=== PATIENT | female | born 1990 | race African-American/Black ===

== ENCOUNTER 2018-04-08 18:25 | Emergency (ER) | payer BC, SELFPAY ==
[2018-04-08] MEDS ORDERED: ONDANSETRON 4 MG/2 ML VIAL ONE (19:47)
[2018-04-08] MEDS ORDERED: NA CHLORIDE 0.9% 1,000 ML ONE (19:47)
[2018-04-08 20:14] LABS: Absolute Monocytes 0.7 K/uL (0.1-1.3); Absolute Neutrophil 8.9 K/uL (1.8-8.0); Basophils % 0.4 % (0-1.3); Eosinophils % 0.4 % (0-4.4); Hematocrit 42.6 % (36.0-45.0); Lymphocytes % 9.7 % (15.3-44.8); MCH 24.2 pg (27.0-35.0); MCV 77.8 fL (80-100); MPV 10.3 fL (7.6-11.3); Monocytes % 6.5 % (3.3-12.3); RBC Red Blood Cell Count 5.47 M/uL (3.86-4.86)
[2018-04-08 20:29] LABS: Albumin 4.2 g/dL (3.2-5.5); Bilirubin Direct 0.2 mg/dL (0-0.2); Bilirubin Total 0.9 mg/dL (0.3-1.2); Protein, Total 8.5 g/dL (6.0-8.3)
[2018-04-08 20:30] LABS: Potassium 4.1 mEq/L (3.6-5.0)
[2018-04-08 20:32] LABS: Urine Bacteria <20 /HPF (<20); Urine Culture Reflex Order NOT NEEDED; Urine RBC <5 /HPF (NONE SEEN)
[2018-04-08 21:02] LABS: Urine Blood TRACE (NEG); Urine Glucose NEGATIVE (NEG); Urine Protein TRACE (NEG)
--- NOTE | 2018-04-08 21:03 | RAD REPORT ---
EXAM DESCRIPTION: US - Abdomen Exam Limited - 04/08/2018 7:51 pm CLINICAL HISTORY: Abdominal pain. COMPARISON: None. FINDINGS: The gallbladder wall is not thickened. A gallstone is not seen. The biliary tree is normal caliber. IMPRESSION: Unremarkable gallbladder ultrasound.
--- NOTE | 2018-04-08 21:54 | ER ---
Nurse's Notes [facility] Name: Riri Olivarez Age: 27 yrs Sex: Female : 1990 Arrival Date: 04/08/2018 Time: 18:30 Bed 20 Private MD: Carlos Carlson Diagnosis: Vomiting;Unspecified abdominal pain Presentation: 04/08 18:48 Presenting complaint: Patient states: vomiting, abdominal cramps, feels hot, t max 100. Transition of care: patient was not received from another setting of care. Onset of symptoms was April 08, 2018 at 08:00. Risk Assessment: Do you want to hurt yourself or someone else? Patient reports no desire to harm self or others. Initial Sepsis Screen: Does the patient meet any 2 criteria? No. Patient's initial sepsis screen is negative. Does the patient have a suspected source of infection? No. Patient's initial sepsis screen is negative. Care prior to arrival: None. 18:48 Method Of Arrival: Ambulatory 18:48 Acuity: GAYLE 3 Triage Assessment: 18:49 General: Appears in no apparent distress. uncomfortable, Behavior is calm, cooperative. Pain: Complains of pain in abdomen Pain currently is 6 out of 10 on a pain scale. GI: Reports cramping, nausea, vomiting. ECHOCARDIOGRAPHER: 18:49 [facility] 04/08/2018 Historical: - Allergies: 18:49 No Known Allergies; - Home Meds: 18:49 None [Active]; - PMHx: 18:49 None; ch - PSHx: 18:49 None; - Immunization history:: Adult Immunizations up to date. - Social history:: Smoking status: Patient/guardian denies using tobacco, Patient uses alcohol, occasionally. - Ebola Screening: : Patient negative for fever greater than or equal to 101.5 degrees Fahrenheit, and additional compatible Ebola Virus Disease symptoms Patient denies exposure to infectious person Patient denies travel to an Ebola-affected area in the 21 days before illness onset No symptoms or risks identified at this time. Screenin:00 Abuse screen: Denies threats or abuse. Denies injuries from another. Nutritional bp screening: No deficits noted. Tuberculosis screening: No symptoms or risk factors identified. Fall Risk None identified. Assessment: 19:14 General: Appears in no apparent distress. uncomfortable, Behavior is calm, cooperative, bp appropriate for age. Pain: Complains of pain in abdomen. Neuro: Level of Consciousness is awake, alert, obeys commands, Oriented to person, place, time, situation. Cardiovascular: Capillary refill < 3 seconds. Respiratory: Airway is patent. GI: Abdomen is flat. : No signs and/or symptoms were reported regarding the genitourinary system. EENT: No signs and/or symptoms were reported regarding the EENT system. Derm: Skin is intact. Musculoskeletal: No signs and/or symptoms reported regarding the musculoskeletal system. 21:00 Reassessment: PO CHALLENGE SUCCESSFUL, PROVIDER NOTIFIED. bp Vital Signs: 18:58 BP 113 / 88; Pulse 124; Resp 22; Temp 100.4; Pulse Ox 97% on R/A; Weight 72.57 kg; ch Height 5 ft. 2 in. (157.48 cm); Pain 6/10; 20:32 BP 108 / 81; Pulse 102; Resp 16; Pulse Ox 100% on R/A; rv 21:00 BP 117 / 84; Pulse 94; Resp 16; Pulse Ox 100% ; bp 18:58 Body Mass Index 29.26 (72.57 kg, 157.48 cm) ED Course: 18:30 Patient arrived in ED. sb2 18:31 Carlos Carlson MD is Private Physician. sb2 18:48 Triage completed. ch 18:49 Arm band placed on left wrist. Patient placed in an exam room, on a stretcher. 18:58 [facility] 18:58 Osei Sherwood MD is Attending Physician. [facility] 19:00 Patient has correct armband on for positive identification. Placed in gown. Bed in low bp position. Call light in reach. Side rails up X2. Adult w/ patient. 19:02 Virgil Lamas, ADALBERTO is Primary Nurse. bp 19:51 US Abdomen Limited In Process Unspecified. EDMS 19:52 Ultrasound completed. Patient tolerated well. Notified ECHO VASCULAR TECH/PA . cy 20:10 Inserted saline lock: 20 gauge in right antecubital area, using aseptic technique. bp 22:10 No provider procedures requiring assistance completed. IV discontinued, intact, rv bleeding controlled, No redness/swelling at site. Pressure dressing applied. Administered Medications: 20:00 Drug: NS 0.9% 1000 ml Route: IV; Rate: 125 ml/hr; Site: right antecubital; bp 20:31 Follow up: Response: No adverse reaction rv 22:10 Follow up: IV Status: Completed infusion rv 20:00 Drug: Zofran 4 mg Route: IVP; Site: right antecubital; bp 20:31 Follow up: Response: No adverse reaction; Nausea is decreased rv Outcome: 21:54 Discharge ordered by MD. cunningham 22:11 Discharged to home ambulatory. rv 22:11 Condition: improved 22:11 Discharge instructions given to patient, Instructed on discharge instructions. 22:11 Patient left the ED. rv Signatures: Dispatcher [employer] EDAmanda Naqvi, ADALBERTO RN Ben Sanchez PA PA jmm Peltier, Brian, RN RN Jenaro Pride Sheri sb2 Hans Jackman RN RN rv Corrections: (The following items were deleted from the chart) 19:01 18:48 Acuity: GAYLE 4 ch
--- NOTE | 2018-04-08 21:54 | EDPHYS ---
Physician Documentation [facility] Name: Riri Olivarez Age: 27 yrs Sex: Female : 1990 Arrival Date: 04/08/2018 Time: 18:30 Bed 20 Private MD: Carlos Carlson ED Physician Osei Sherwood HPI: 04/08 19:25 This 27 yrs old Black Female presents to ER via Ambulatory with complaints of Fever, jmm Vomiting. 19:25 The patient presents to the emergency department with nausea, vomiting, abdominal pain. jmm Onset: The symptoms/episode began/occurred gradually, today. Associated signs and symptoms: Pertinent positives: fever. patient states she developed vomiting, fever, and epigastric pain earlier today. denies diarrhea. child has had diarrhea for the past 3 days. Patient states she has abdominal pain when vomiting. . BRICKMASON: 18:49 LMP 04/08/2018 ch Historical: - Allergies: 18:49 No Known Allergies; ch - Home Meds: 18:49 None [Active]; ch - PMHx: 18:49 None; ch - PSHx: 18:49 None; ch - Immunization history:: Adult Immunizations up to date. - Social history:: Smoking status: Patient/guardian denies using tobacco, Patient uses alcohol, occasionally. - Ebola Screening: : Patient negative for fever greater than or equal to 101.5 degrees Fahrenheit, and additional compatible Ebola Virus Disease symptoms Patient denies exposure to infectious person Patient denies travel to an Ebola-affected area in the 21 days before illness onset No symptoms or risks identified at this time. ROS: 19:25 Cardiovascular: Negative for chest pain, palpitations, and edema, Respiratory: Negative jmm for shortness of breath, cough, wheezing, and pleuritic chest pain. 19:25 Skin: Negative for injury, rash, and discoloration, Neuro: Negative for headache, weakness, numbness, tingling, and seizure. 19:25 Constitutional: Positive for fever. 19:25 Abdomen/GI: Positive for abdominal pain, nausea and vomiting, Negative for diarrhea. 19:25 All other systems are negative. Exam: 19:25 Constitutional: This is a well developed, well nourished patient who is awake, alert, jmm and in no acute distress. Head/Face: atraumatic. 19:25 Cardiovascular: Rate: tachycardic, Rhythm: regular. 19:25 Respiratory: the patient does not display signs of respiratory distress, Respirations: normal, Breath sounds: are clear throughout. 19:25 Abdomen/GI: Inspection: abdomen appears normal, Bowel sounds: normal, Palpation: soft, mild abdominal tenderness, in the epigastric area. 19:25 Back: CVA tenderness, is absent. 19:25 Skin: Appearance: Color: normal in color. 19:25 Neuro: Orientation: is normal, Mentation: is normal, Memory: is normal. 19:25 Psych: Behavior/mood is pleasant, cooperative. Vital Signs: 18:58 BP 113 / 88; Pulse 124; Resp 22; Temp 100.4; Pulse Ox 97% on R/A; Weight 72.57 kg; ch Height 5 ft. 2 in. (157.48 cm); Pain 6/10; 20:32 BP 108 / 81; Pulse 102; Resp 16; Pulse Ox 100% on R/A; rv 21:00 BP 117 / 84; Pulse 94; Resp 16; Pulse Ox 100% ; bp 18:58 Body Mass Index 29.26 (72.57 kg, 157.48 cm) ch MDM: 19:25 Differential diagnosis: Nonspecific abd pain, gastritis, cholecystitis. Data reviewed: [facility] vital signs, nurses notes, lab test result(s), radiologic studies, ultrasound. ED course: Imaging studies review no acute findings. patient states feeling much better after administration of iv fluids and antiemetics. no abdominal pain on repeat examination. No RLQ pain appreciated, I do not currently suspect appendicitis. . 19:28 Patient medically screened. [facility] 04/08 19:33 Order name: Amylase, Serum; Complete Time: 20:39 [facility] 04/08 19:33 Order name: Basic Metabolic Panel; Complete Time: 20:39 [facility] 04/08 19:33 Order name: CBC with Diff; Complete Time: 20:39 [facility] 04/08 19:33 Order name: Creatinine for Radiology; Complete Time: 20:39 [facility] 04/08 19:33 Order name: Hepatic Function; Complete Time: 20:39 [facility] 04/08 19:33 Order name: Lipase; Complete Time: 20:39 [facility] 04/08 19:33 Order name: Urine Microscopic Only; Complete Time: 20:39 [facility] 04/08 19:33 Order name: IV Saline Lock; Complete Time: 21: [facility] 04/08 19:33 Order name: Labs collected and sent; Complete Time: 21: [facility] 04/08 19:33 Order name: US Abdomen Limited; Complete Time: 21: [facility] 04/08 20:37 Order name: Urine Dipstick--Ancillary (enter results); Complete Time: 21: ar 04/08 20:37 Order name: Urine --Ancillary (enter results); Complete Time: 21: ar 04/08 19:33 Order name: Urine Dipstick-Ancillary (obtain specimen); Complete Time: 21:22 [facility] Administered Medications: 20:00 Drug: NS 0.9% 1000 ml Route: IV; Rate: 125 ml/hr; Site: right antecubital; bp 20:31 Follow up: Response: No adverse reaction rv 22:10 Follow up: IV Status: Completed infusion rv 20:00 Drug: Zofran 4 mg Route: IVP; Site: right antecubital; bp 20:31 Follow up: Response: No adverse reaction; Nausea is decreased rv Disposition: 04/08/18 21:54 Discharged to Home. Impression: Vomiting, Unspecified abdominal pain. - Condition is Stable. - Discharge Instructions: Abdominal Pain, Adult, Nausea and Vomiting. - Prescriptions for Zofran 4 mg Oral Tablet - take 1 tablet by ORAL route every 12 hours As needed; 20 tablet. - Medication Reconciliation Form, Thank You Letter, Antibiotic Education, Prescription Opioid Use form. - Follow up: Private Physician; When: Tomorrow; Reason: Recheck today's complaints. - Notes: Please follow up with your primary care provider in 1 to 2 days for reevaluation. Please return to the ED if you develop worsening abdominal pain, vomiting, or any other concerning symptoms. Addendum: 04/16/2018 11:55 Co-signature as Attending Physician, Osei Sherwood MD. g s Signatures: Dispatcher [employer] EDMS Amanda Russell, Ben Gupta RN, ch, PA PA Osei Larson MD MD gs Peltier, Brian, RN RN Hans Cornejo RN RN rv Corrections: (The following items were deleted from the chart) 04/08 22:11 21:54 04/08/2018 21:54 Discharged to Home. Impression: Vomiting; Unspecified abdominal rv pain. Condition is Stable. Forms are Medication Reconciliation Form, Thank You Letter, Antibiotic Education, Prescription Opioid Use. Follow up: Private Physician; When: Tomorrow; Reason: Recheck today's complaints. octavio
== END 2018-04-08 22:11 | disposition home or self-care (01) ==
LOC: ER 18:25
DX: R10.9 Unspecified abdominal pain (principal)
CPT/HCPCS: 36415; 76705; 80048; 80076; 81003; 81015; 81025; 82150; 83690; 85025; 96361; 96374; 99283; J2405; J7030

== ENCOUNTER 2018-09-13 16:42 | Emergency (ER) | payer SELFPAY ==
--- NOTE | 2018-09-13 17:10 | EDPHYS ---
Physician Documentation [facility] Name: Riri Olivarez Age: 27 yrs Sex: Female : 1990 Arrival Date: 09/13/2018 Time: 16:46 Bed 12 Private MD: Carlos Carlson ED Physician Chai Eaton HPI: 09/13 17:11 This 27 yrs old Black Female presents to ER via Ambulatory with complaints of Rash. snw 17:11 The patient's rash thought to be caused by hand, foot, and mouth. The rash is located snw on the hand, foot, and mouth. The rash can be described as macular/vesicular. Onset: The symptoms/episode began/occurred gradually, 1 week(s) ago, and became persistent. 17:13 Associated signs and symptoms: Pertinent positives: mild joint pain last week, daughter snw dx with hand, foot, and mouth last week. Treatment given at home: motrin. The patient has not experienced similar symptoms in the past, but family has similar symptoms, daughter. The patient has not recently seen a physician. Historical: - Allergies: 16:49 No Known Allergies; sv - PSHx: 16:49 None; sv - Immunization history:: Flu vaccine is not up to date. - Social history:: Smoking status: Patient/guardian denies using tobacco. - Ebola Screening: : No symptoms or risks identified at this time. ROS: 17:11 Constitutional: Negative for fever, chills, and weight loss, Eyes: Negative for injury, snw pain, redness, and discharge, ENT: Negative for injury, pain, and discharge, Neck: Negative for injury, pain, and swelling, Cardiovascular: Negative for chest pain, palpitations, and edema, Respiratory: Negative for shortness of breath, cough, wheezing, and pleuritic chest pain, Abdomen/GI: Negative for abdominal pain, nausea, vomiting, diarrhea, and constipation, Back: Negative for injury and pain, : Negative for injury, bleeding, discharge, and swelling, MS/Extremity: Negative for injury and deformity, Neuro: Negative for headache, weakness, numbness, tingling, and seizure, Psych: Negative for depression, anxiety, suicide ideation, homicidal ideation, and hallucinations. 17:11 Skin: Positive for rash. Exam: 17:10 Constitutional: This is a well developed, well nourished patient who is awake, alert, snw and in no acute distress. Head/Face: Normocephalic, atraumatic. Eyes: Pupils equal round and reactive to light, extra-ocular motions intact. Lids and lashes normal. Conjunctiva and sclera are non-icteric and not injected. Cornea within normal limits. Periorbital areas with no swelling, redness, or edema. ENT: Nares patent. No nasal discharge, no septal abnormalities noted. Tympanic membranes are normal and external auditory canals are clear. Oropharynx with no redness, swelling, or masses, exudates, or evidence of obstruction, uvula midline. Mucous membranes moist. Neck: Trachea midline, no thyromegaly or masses palpated, and no cervical lymphadenopathy. Supple, full range of motion without nuchal rigidity, or vertebral point tenderness. No Meningismus. Chest/axilla: Normal chest wall appearance and motion. Nontender with no deformity. No lesions are appreciated. Cardiovascular: Regular rate and rhythm with a normal S1 and S2. No gallops, murmurs, or rubs. Normal PMI, no JVD. No pulse deficits. Respiratory: Lungs have equal breath sounds bilaterally, clear to auscultation and percussion. No rales, rhonchi or wheezes noted. No increased work of breathing, no retractions or nasal flaring. Abdomen/GI: Soft, non-tender, with normal bowel sounds. No distension or tympany. No guarding or rebound. No evidence of tenderness throughout. Back: No spinal tenderness. No costovertebral tenderness. Full range of motion. MS/ Extremity: Pulses equal, no cyanosis. Neurovascular intact. Full, normal range of motion. Neuro: Awake and alert, GCS 15, oriented to person, place, time, and situation. Cranial nerves II-XII grossly intact. Motor strength 5/5 in all extremities. Sensory grossly intact. Cerebellar exam normal. Normal gait. Psych: Awake, alert, with orientation to person, place and time. Behavior, mood, and affect are within normal limits. 17:10 Skin: Appearance: normal except for affected area, hand, foot, and mouth. Vital Signs: 16:49 BP 127 / 96; Pulse 81; Resp 16; Temp 97; Pulse Ox 100% ; Weight 77.11 kg; Height 5 ft. sv 2 in. (157.48 cm); Pain 0/10; 16:49 Body Mass Index 31.09 (77.11 kg, 157.48 cm) MDM: 17:02 Patient medically screened. snw 17:11 Data reviewed: vital signs, nurses notes. Data interpreted: Pulse oximetry: on room air snw is 100 %. Interpretation: normal. Counseling: I had a detailed discussion with the patient and/or guardian regarding: the historical points, exam findings, and any diagnostic results supporting the discharge/admit diagnosis, the presence of at least one elevated blood pressure reading (>120/80) during this emergency department visit, the need for outpatient follow up, to return to the emergency department if symptoms worsen or persist or if there are any questions or concerns that arise at home. Special discussion: Based on the history and exam findings, there is no indication for further emergent testing or inpatient evaluation. I discussed with the patient/guardian the need to see the primary care provider for further evaluation of the symptoms. Administered Medications: No medications were administered Disposition: 09/14 07:07 Co-signature as Attending Physician, Chai Eaton MD I agree with the assessment and barbie plan of care. Disposition: 09/13/18 17:09 Discharged to Home. Impression: Viral infection, unspecified. - Condition is Stable. - Discharge Instructions: Hand, Foot, and Mouth Disease, Pediatric, Viral Respiratory Infection, Rehydration, Adult. - Work release form, Medication Reconciliation Form, Thank You Letter, Antibiotic Education, Prescription Opioid Use form. - Follow up: Private Physician; When: 2 - 3 days; Reason: Recheck today's complaints, Continuance of care, Re-evaluation by your physician. Follow up: Emergency Department; When: As needed; Reason: Worsening of condition. Signatures: Leanna Briggs, Chai Glover RN, MD MD cha Therrien, Shelly, DRUPAL PROGRAMMER-C DRUPAL PROGRAMMER-Csnw Hans Jackman, RN RN rv Corrections: (The following items were deleted from the chart) 09/13 17:24 17:09 09/13/2018 17:09 Discharged to Home. Impression: Viral infection, unspecified. rv Condition is Stable. Forms are Medication Reconciliation Form, Thank You Letter, Antibiotic Education, Prescription Opioid Use. Follow up: Private Physician; When: 2 - 3 days; Reason: Recheck today's complaints, Continuance of care, Re-evaluation by your physician. Follow up: Emergency Department; When: As needed; Reason: Worsening of condition. snw
--- NOTE | 2018-09-13 17:10 | ER ---
Nurse's Notes [facility] Name: Riri Olivarez Age: 27 yrs Sex: Female : 1990 Arrival Date: 09/13/2018 Time: 16:46 Bed 12 Private MD: Carlos Carlson Diagnosis: Viral infection, unspecified Presentation: 09/13 16:48 Presenting complaint: Patient states: rash started Thursday. Daughter recently had hand, sv foot, mouth disease. Transition of care: patient was not received from another setting of care. Onset of symptoms was September 10, 2018. Care prior to arrival: None. 16:48 Method Of Arrival: Ambulatory sv 16:48 Acuity: GAYLE 5 sv 16:54 Risk Assessment: Do you want to hurt yourself or someone else? Patient reports no rv desire to harm self or others. Initial Sepsis Screen: Does the patient meet any 2 criteria? No. Patient's initial sepsis screen is negative. Does the patient have a suspected source of infection? No. Patient's initial sepsis screen is negative. Historical: - Allergies: 16:49 No Known Allergies; sv - PSHx: 16:49 None; sv - Immunization history:: Flu vaccine is not up to date. - Social history:: Smoking status: Patient/guardian denies using tobacco. - Ebola Screening: : No symptoms or risks identified at this time. Screenin:54 Abuse screen: Denies threats or abuse. Denies injuries from another. Nutritional rv screening: No deficits noted. Tuberculosis screening: No symptoms or risk factors identified. Fall Risk None identified. Assessment: 16:54 General: Appears in no apparent distress. comfortable, Behavior is calm, cooperative. rv Pain: Denies pain. Neuro: Level of Consciousness is awake, alert, obeys commands, Oriented to person, place, time, situation. Cardiovascular: Capillary refill < 3 seconds. Respiratory: Airway is patent. GI: No signs and/or symptoms were reported involving the gastrointestinal system. : No signs and/or symptoms were reported regarding the genitourinary system. EENT: No signs and/or symptoms were reported regarding the EENT system. Musculoskeletal: No signs and/or symptoms reported regarding the musculoskeletal system. Vital Signs: 16:49 BP 127 / 96; Pulse 81; Resp 16; Temp 97; Pulse Ox 100% ; Weight 77.11 kg; Height 5 ft. sv 2 in. (157.48 cm); Pain 0/10; 16:49 Body Mass Index 31.09 (77.11 kg, 157.48 cm) sv ED Course: 16:46 Patient arrived in ED. sb2 16:46 Carlos Carlson MD is Private Physician. sb2 16:49 Triage completed. sv 16:49 Arm band placed on. sv 16:55 Patient has correct armband on for positive identification. Call light in reach. Pulse rv ox on. NIBP on. 17:01 Theodora Smith FNP-C is PHCP. snw 17:01 Chai Eaton MD is Attending Physician. snw 17:24 No provider procedures requiring assistance completed. Patient did not have IV access rv during this emergency room visit. Administered Medications: No medications were administered Outcome: 17:09 Discharge ordered by . snw 17:24 Discharged to home ambulatory. rv 17:24 Condition: good 17:24 Discharge instructions given to patient, Instructed on discharge instructions, follow up and referral plans. Demonstrated understanding of instructions, follow-up care. 17:24 Patient left the ED. rv Signatures: Leanna Briggs, RN RN Theodora Smith FNP-C PHOTOGRAPHIC EDITOR-Csnw Prema Erazo sb2 Hans Jackman RN RN rv
== END 2018-09-13 17:24 | disposition home or self-care (01) ==
LOC: ER 16:42
DX: B34.9 Viral infection, unspecified (principal)
CPT/HCPCS: 99283